=== PATIENT | female | born 1980 | race Caucasian/White ===

== ENCOUNTER 2024-06-11 14:52 | Emergency (ER) | payer SELFPAY ==
[2024-06-11 15:07] VITALS: BP 150/96; PULSE 94; RESP 16; TEMP 36.7; O2SAT 99
--- NOTE | 2024-06-11 15:58 | ED.URI ---
HPI - URI/Sore Throat General Chief Complaint: Upper Respiratory Infection Stated Complaint: Cough and STD Testing Time Seen by Provider: 06/11/24 15:58 Source: patient, RN notes reviewed and old records reviewed Mode of arrival: ambulatory Limitations: no limitations History of Present Illness HPI Narrative: Patient recently treated for pneumonia presents with complaints of lingering cough and vaginal discharge. She reports that she feels much better than she did when she was diagnosed and treated for pneumonia. Says that cough that remains is worse at night. She has been taking severe sinus medication for this with mild relief. She also complains of vaginal discharge ?I know my vagina and something is wrong with it?. Reports that she has been engaging in sexual activity with same person that she suspected of carrying STDs the last time she was here and tested negative. Related Data Allergies Allergy/AdvReac Type Severity Reaction Status Date / Time No Known Allergies Allergy Verified 06/11/24 16:09 Review of Systems Review of Systems: All systems reviewed & are unremarkable except as noted in HPI and below Constitutional: Constitutional: Reports no additional constitutional complaints ENT: Reports system reviewed and no additional complaints, except as documented Cardiovascular: Cardiovascular: Reports no additional cardiovascular complaints Respiratory: Respiratory: Reports no additional respiratory complaints and Reports cough Gastrointestinal: Gastrointestinal: Reports no additional gastrointestinal complaints Genitourinary: Genitourinary: Reports no additional female genitourinary complaints and Reports as per [facility] Social History Social History Alcohol intake: never Comments At the time of my signature, I reviewed and agree with the nursing past medical, surgical, social, and family history. There is no relevant family history pertinent to the patient complaint. Exam Const: General: cooperative, no acute distress, alert and awake Orientation/consciousness: oriented to person, oriented to place and oriented to time HENMT: Head: normal to inspection Mouth: Yes moist mucous membranes Resp: Effort & Inspection: normal respiratory effort and able to speak in complete sentences Auscultation: clear to auscultation bilaterally, no crackles, no rales, no rhonchi and no wheezes Cardio: Palpation: normal PMI Rate: regular rate Rhythm: regular rhythm Heart sounds: S1 normal heart sound present and S2 normal heart sound present Neuro: General: oriented to person, oriented to place and oriented to time Cranial nerves: Yes CN's II-XII intact bilaterally Psych: Appearance: grossly normal Thought process: Normal thought process present Insight: Good insight present (Psych) Judgement: Good judgement present (Psych) Course Course Level of Care: Express Care Visit Vital Signs Vital signs: Vital Signs Temperature 98.0 F 06/11/24 15:07 Pulse Rate 94 06/11/24 15:07 Respiratory Rate 16 06/11/24 15:07 Blood Pressure 150/96 H 06/11/24 15:07 Pulse Oximetry 99 06/11/24 15:07 Oxygen Delivery Room Air 06/11/24 15:07 Temperature 98.0 F 06/11/24 15:07 Pulse Rate 94 06/11/24 15:07 Respiratory Rate 16 06/11/24 15:07 Blood Pressure 150/96 H 06/11/24 15:07 Pulse Oximetry 99 06/11/24 15:07 Oxygen Delivery Room Air 06/11/24 15:07 Reviewed MDM - URI/Sore Throat MDM Narrative Medical decision making narrative: Reassuring physical exam. No wheezing or cough noted on exam. Urine collected to send for culture. Discussed importance of finding a primary care provider with the patient Discharge instructions reviewed with patient, as well as provided in writing per nursing staff. The instructions also include specific and strict return/GO TO THE ER as well as f/u information. All questions have been answered, and the patient deny any further questions with discharge and discharge plan. Some parts of this dictation were generated by voice recognition software and may contain typographical and/or grammatical inaccuracies. Differential Diagnosis Differential diagnosis: Likely upper respiratory infection, croup, sinusitis, viral infection, bronchitis and influenza Medical Records Attestation: I reviewed the patient's medical records. Discharge Plan Discharge Clinical Impression: Upper respiratory infection Qualifiers: URI type: unspecified viral URI Qualified Code(s): J06.9 - Acute upper respiratory infection, unspecified High risk sexual behavior Qualifiers: High risk sexual behavior type: unspecified Qualified Code(s): Z72.51 - High risk heterosexual behavior Patient Disposition: Home, Self-Care Condition: Stable Instructions: Antibiotic Form, Safe Sex Practices (ED), Acute Cough (ED) Additional Instructions: Follow-up with primary care provider. Emergency department for new or worse symptoms Patient Language: Latvian Prescriptions: New benzonatate 200 mg capsule 200 mg PO TID PRN (Reason: cough) Qty: 14 0RF Follow-up/Referrals: PHYSICIAN,WIND TUNNEL ENGINEER [Primary Care Provider] - Time of Disposition: 16:16
[2024-06-11 20:26] LABS: Trichomonas Vag PCR NOT DETECTED (NOT DETECTE)
[2024-06-11 20:51] LABS: Chlamydia trachomatis NOT DETECTED (NOT DETECTE); Neisseria gonorrhoeae PCR NOT DETECTED (NOT DETECTE)
== END 2024-06-11 16:24 | disposition home or self-care (01) ==
PROVIDERS: Emergency Provider Nurse Practitioner Family
DX: J06.9 Acute upper respiratory infection, unspecified (principal); Z72.51 High risk heterosexual behavior
CPT/HCPCS: 87491; 87591; 87661; 99213; G0463